=== PATIENT | male | born 1945 | race African-American/Black ===

== ENCOUNTER 2017-08-01 09:50 | Inpatient (IN) | payer MEDICARE, OTHER ==
[~2017-08-01] VITALS: Ht 198.1 cm; Wt 78.9 kg
[2017-08-01] MEDS ORDERED: Sodium Chloride 500ML 500 ML IV ONE ×2 (10:18→13:30)
[2017-08-01 10:42] VITALS: BP 196/126
--- NOTE | 2017-08-01 10:43 | Emergency Room Report ---
History of Present Illness General Chief Complaint: Syncope Source: Patient Present Illness HPI Patient presents with complaints of syncopal episode Patient reports that he was at work Was at his station when he had a hot flash sensation The next thing he recalls is being on the ground Denies any headache denies any chest pain or palpitations After the episode he has some cramping in his legs denies any pleurisy denies any focal weakness This has never happened to him before patient is otherwise fairly healthy and takes vitamins only Allergies: Coded Allergies: No Known Allergies (Unverified , 08/01/17) Patient History Past Medical History: see triage record Pertinent Family History: none Reviewed Nursing Documentation: PMH: Agreed; PSxH: Agreed Nursing Documentation-PMH Past Medical History: No Stated History Review of Systems All Other Systems: negative except mentioned in HPI Physical Exam Vital Signs Date Time Temp Pulse Resp B/P (MAP) Pulse Ox O2 Delivery O2 Flow Rate FiO2 08/01/17 09:44 98.0 75 19 169/119 100 Room Air 98.1 Sp02 EP Interpretation: reviewed, normal General Appearance: well appearing, no apparent distress Head: normocephalic, atraumatic Eyes: bilateral eye PERRL, bilateral eye EOMI ENT: hearing grossly normal, normal pharynx, TMs + canals normal, uvula midline Neck: full range of motion, supple, no meningismus, no bony tend Respiratory: lungs clear, normal breath sounds, no rhonchi, no respiratory distress, no retraction, no accessory muscle use Cardiovascular #1: normal peripheral pulses, regular rate, rhythm, no edema, no gallop, no JVD, no murmur Gastrointestinal: normal bowel sounds, non tender, soft, no mass, no organomegaly, non-distended, no guarding, no hernia, no pulsatile mass, no rebound Genitourinary: no CVA tenderness Musculoskeletal: normal inspection Neurologic: oriented x3, responsive, launch [employer] III-XII nml as tested, motor strength/ tone normal, sensory intact Psychiatric: mood/affect normal Skin: normal color, no rash, warm/dry, palpation normal Lymphatic: normal inspection, no adenopathy Procedures Critical Care Time Critical Care Time 40 minutes for multiple re-evaluations critical findings concerning for end organ injury and cardiac not including any procedural time, Medical Decision Making Diagnostic Impression: Primary Impression: Syncope Additional Impressions: Elevated troponin Anemia ER Course Patient is a fairly complex patient with multiple differential to consideration including but not limited to cardiac cardiopulmonary and vascular emergencies Patient's initial workup reveals anemia Patient's kidney function is also elevated with findings of elevated troponin EKG is performed does not show any obvious ST elevation patient remains pain- free Requires further inpatient care and evaluation Labs Test 08/01/17 10:40 White Blood Count 13.4 K/UL (4.8-10.8) Red Blood Count 2.81 M/UL (4.70-6.10) Hemoglobin 8.1 G/DL (14.2-18.0) Hematocrit 25.0 % (42.0-52.0) Mean Corpuscular Volume 89 FL (80-99) Mean Corpuscular Hemoglobin 28.9 PG (27.0-31.0) Mean Corpuscular Hemoglobin Concent 32.4 G/DL (32.0-36.0) Red Cell Distribution Width 21.3 % (11.6-14.8) Platelet Count 196 K/UL (150-450) Mean Platelet Volume 7.6 FL (6.5-10.1) Neutrophils (%) (Auto) 65.5 % (45.0-75.0) Lymphocytes (%) (Auto) 20.2 % (20.0-45.0) Monocytes (%) (Auto) 12.3 % (1.0-10.0) Eosinophils (%) (Auto) 0.7 % (0.0-3.0) Basophils (%) (Auto) 1.4 % (0.0-2.0) Sodium Level 129 MMOL/L (136-145) Potassium Level 3.4 MMOL/L (3.5-5.1) Chloride Level 95 MMOL/L (98-107) Carbon Dioxide Level 29 MMOL/L (21-32) Anion Gap 5 mmol/L (5-15) Blood Urea Nitrogen 36 mg/dL (7-18) Creatinine 2.3 MG/DL (0.55-1.30) Estimat Glomerular Filtration Rate mL/min (>60) Glucose Level 168 MG/DL (74-106) Calcium Level 8.3 MG/DL (8.5-10.1) Total Bilirubin 0.3 MG/DL (0.2-1.0) Aspartate Amino Transf (AST/SGOT) 97 U/L (15-37) Alanine Aminotransferase (ALT/SGPT) 73 U/L (12-78) Alkaline Phosphatase 182 U/L (46-116) Total Creatine Kinase 585 U/L (26-308) Creatine Kinase MB 3.7 NG/ML (0.0-3.6) Creatine Kinase MB Relative Index 0.6 Troponin I 0.205 ng/mL (0.000-0.056) Total Protein 14.6 G/DL (6.4-8.2) Albumin 2.6 G/DL (3.4-5.0) Globulin 12.0 g/dL EKG Diagnostic Results Rate: normal Rhythm: NSR ST Segments: other - Nonspecific ST and T-wave changes Rhythm Strip Diag. Results EP Interpretation: yes Rate: 88 Rhythm: NSR, no PVC's, no ectopy Chest X-Ray Diagnostic Results Chest X-Ray Diagnostic Results : Chest X-Ray Ordered: Yes # of Views/Limited/Complete: 1 View Indication: Chest Pain EP Interpretation: Yes Interpretation: no consolidation, no effusion, no pneumothorax, no acute cardiopulmonary disease Impression: No acute disease Electronically Signed by: Cynthia Gleason DO Last Vital Signs Date Time Temp Pulse Resp B/P (MAP) Pulse Ox O2 Delivery O2 Flow Rate FiO2 08/01/17 09:44 98.0 75 19 169/119 100 Room Air 98.1 Status: improved Disposition: ADMITTED INPATIENT Condition: Serious Scripts No Active Prescriptions or Reported Meds Cynthia Gleason DO Aug 01, 2017 10:43
[2017-08-01 11:10] LABS: ANION GAP 5 mmol/L (5-15); BLOOD UREA NITROGEN 36 mg/dL (7-18); CALCIUM 8.3 MG/DL (8.5-10.1); CARBON DIOXIDE 29 MMOL/L (21-32); CHLORIDE 95 MMOL/L (98-107); CREATININE 2.3 MG/DL (0.55-1.30); POTASSIUM 3.4 MMOL/L (3.5-5.1); SODIUM 129 MMOL/L (136-145)
[2017-08-01 11:15] LABS: BASOPHILS % (AUTO) 1.4 % (0.0-2.0); EOSINOPHILS % (AUTO) 0.7 % (0.0-3.0); HEMOGLOBIN 8.1 G/DL (14.2-18.0); LYMPHOCYTES % (AUTO) 20.2 % (20.0-45.0); MEAN CORPUSCULAR VOLUME 89 FL (80-99); MONOCYTES % (AUTO) 12.3 % (1.0-10.0); NEUTROPHILS % (AUTO) 65.5 % (45.0-75.0); PLATELET COUNT 196 K/UL (150-450); RED BLOOD COUNT 2.81 M/UL (4.70-6.10); RED CELL DISTRIBUTION WIDTH 21.3 % (11.6-14.8); WHITE BLOOD COUNT 13.4 K/UL (4.8-10.8)
[2017-08-01 11:26] LABS: ALANINE AMINOTRANSFERASE 73 U/L (12-78); ALBUMIN 2.6 G/DL (3.4-5.0); ALKALINE PHOSPHATASE 182 U/L (46-116); ASPARTATE AMINO TRANSFERASE 97 U/L (15-37); BILIRUBIN,TOTAL 0.3 MG/DL (0.2-1.0); CKMB 3.7 NG/ML (0.0-3.6); CREATINE KINASE 585 U/L (26-308)
[2017-08-01 12:25] VITALS: BP 197/117
[2017-08-01] MEDS ORDERED: Nitroglycerin 2% oint pkt TOPIC ONE (12:30)
--- NOTE | 2017-08-01 14:04 | Diagnostic Imaging Report ---
Indication: Chest pain Technique: One view of the chest Comparison: none Findings: Lungs and pleural spaces are clear. Heart size is normal. There is tortuous. There are degenerative changes of the right shoulder Impression: No acute process
[2017-08-01 14:31] VITALS: BP 219/124
[2017-08-01] MEDS: NS w/KCl 20mEq 1,000 ML IV SCH ×2 (15:02→23:03)
[2017-08-01 15:17] VITALS: BP 171/91
[2017-08-01 15:53] VITALS: BP 161/100
--- NOTE | 2017-08-01 16:01 | History & Physical ---
History and Physical History & Physicial dict syncope HTN anemia, rectal bleeding azotemia low albumin smoker GI eval echo, CDS monitor Renato Orona MD Aug 01, 2017 16:01
[2017-08-01 18:33] LABS: APPEARANCE,URINE SLIGHTLY CLOUDY; BILIRUBIN, URINE NEGATIVE (NEGATIVE); COLOR,URINE PALE YELLOW; GLUCOSE, URINE (UA) NEGATIVE (NEGATIVE); KETONES,URINE NEGATIVE (NEGATIVE); LEUKOCYTE ESTERASE ,URINE NEGATIVE (NEGATIVE); NITRITE,URINE NEGATIVE (NEGATIVE); PH,URINE 5 (4.5-8.0); PROTEIN,URINE 3+ (NEGATIVE); UROBILINOGEN,URINE NORMAL MG/DL (0.0-1.0)
[2017-08-01 20:00] VITALS: BP 160/99
[2017-08-01] MEDS: Analgesic Balm 15gm TOPIC SCH (20:00)
--- NOTE | 2017-08-01 20:03 | General Progress Note ---
Assessment/Plan Assessment/Plan GI Consult Dictated. EGD tomorrow afternoon. Thank you Zaynab Melara MD Subjective Allergies: Coded Allergies: No Known Allergies (Unverified , 08/01/17) Objective Last 24 Hour Vital Signs Date Time Temp Pulse Resp B/P (MAP) Pulse Ox O2 Delivery O2 Flow Rate FiO2 08/01/17 17:30 92 161/100 08/01/17 17:10 98 08/01/17 17:05 94 08/01/17 17:00 87 08/01/17 16:00 91 08/01/17 15:53 97.3 92 18 161/100 98 Room Air 97.3 08/01/17 15:39 98.1 82 18 171/91 98 Room Air 98.1 08/01/17 15:17 82 18 171/91 98 08/01/17 15:02 219/124 08/01/17 14:31 78 14 219/124 100 Room Air 08/01/17 13:46 196/126 08/01/17 12:25 98.1 77 10 197/117 100 Room Air 98.1 08/01/17 10:42 98.1 72 13 196/126 97 Room Air 98.1 08/01/17 09:44 98.0 75 19 169/119 100 Room Air 98.1 Laboratory Tests 08/01/17 10:40: White Blood Count 13.4H, Red Blood Count 2.81L, Hemoglobin 8.1L, Hematocrit 25.0L, Mean Corpuscular Volume 89, Mean Corpuscular Hemoglobin 28.9, Mean Corpuscular Hemoglobin Concent 32.4, Red Cell Distribution Width 21.3H, Platelet Count 196, Mean Platelet Volume 7.6, Neutrophils (%) (Auto) 65.5, Lymphocytes (%) (Auto) 20.2, Monocytes (%) (Auto) 12.3H, Eosinophils (%) (Auto) 0.7, Basophils (%) (Auto) 1.4, Sodium Level 129L, Potassium Level 3.4L, Chloride Level 95L, Carbon Dioxide Level 29, Anion Gap 5, Blood Urea Nitrogen 36H, Creatinine 2.3H, Estimat Glomerular Filtration Rate , Glucose Level 168H, Calcium Level 8.3L, Total Bilirubin 0.3, Aspartate Amino Transf (AST/SGOT) 97H, Alanine Aminotransferase (ALT/SGPT) 73, Alkaline Phosphatase 182H, Total Creatine Kinase 585H, Creatine Kinase MB 3.7H, Creatine Kinase MB Relative Index 0.6, Troponin I 0.205H, Total Protein 14.6H, Albumin 2.6L, Globulin 12.0 08/01/17 18:20: Urine Color Pale yellow, Urine Appearance Slightly cloudy, Urine pH 5, Urine Specific Shannon 1.015, Urine Protein 3+H, Urine Glucose (UA) Negative, Urine Ketones Negative, Urine Occult Blood 5+H, Urine Nitrite Negative, Urine Bilirubin Negative, Urine Urobilinogen Normal, Urine Leukocyte Esterase Negative , Urine RBC 20-30H, Urine WBC 0-2, Urine Squamous Epithelial Cells None, Urine Amorphous Sediment ModerateH, Urine Bacteria Occasional, Urine Random Sodium 52 , Urine Creatinine 102.7, Urine Total Protein [Pending], Urine Albumin (%) [ Pending], Urine Mywjz-8-Duzaqwjlc (%) [Pending], Urine Fveaw-9-Jvbdyovme (%) [ Pending], Urine Beta-Globulin (%) [Pending], Urine Gamma Globulin (%) [Pending] , Ur Protein Electrophoresis M-David [Pending], Urine Protein Electrophoresis Intrp [Pending] 08/01/17 18:30: Stool Occult Blood [Pending] Height (Feet): 6 Height (Inches): 2.00 Weight (Pounds): 174 TAYLORALEXXANNAMINISTERIOLOVE Aug 01, 2017 20:03
[2017-08-01] MEDS: Pantoprazole Inj IVP SCH (20:46)
[2017-08-01] MEDS: Metoprolol 25mg tab ORAL SCH (20:47)
--- NOTE | 2017-08-01 22:46 | History and Physical Report ---
DATE OF ADMISSION: 08/01/2017 CHIEF COMPLAINT: Syncope. 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 He suddenly felt hot sensation in his face and lost consciousness, finding himself on the ground. He injured his right elbow. Paramedics brought him here. He was evaluated in the emergency department and found to have marked hypertension up to 219/124 as well as anemia. Admission was arranged. PAST MEDICAL HISTORY: The patient reports that he was exposed to [place] in [place] and visits [place] on regular basis. He reports that he has no other major health problems and has been evaluated in the past. 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 There is no history of diabetes, hypertension, or heart disease. 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 SOCIAL HISTORY: He does not drink excessively. He smokes a few cigarettes, 1 or 2 cigarettes per day. ALLERGIES: None. REVIEW OF SYSTEMS: CONSTITUTIONAL: He has no headaches or seizures. He has no prior loss of consciousness. He has no history of stroke. EYES: No visual difficulty. EARS, NOSE, THROAT: No complaints. CHEST: No chest pain or shortness of breath. No palpitations, cough, or wheezing. ABDOMEN: No nausea, vomiting, or diarrhea. He does have bleeding, dark blood from the rectum on the toilet paper and in the toilet for the past 1 or 2 months. URINARY: He gets up 3 times at night to urinate. MUSCULOSKELETAL: He complains of some pain in his legs. PHYSICAL EXAMINATION: VITAL SIGNS: The blood pressure most recently is 161/100, temperature is normal, respirations normal, saturation 98% on room air, pulse is 92. He did receive some hydralazine earlier when his blood pressure was 219/124. GENERAL: A thin, well-developed man in no distress. He states that his weight is stable. HEAD: Normocephalic. EYES: No scleral icterus. NECK: No jugular vein distention. No lymphadenopathy. CHEST: Clear. CARDIAC: Rhythm regular. No murmur or gallop. ABDOMEN: Soft and nontender. Liver and spleen not enlarged. EXTREMITIES: No clubbing, cyanosis, or edema. IMAGING: Chest x-ray is negative. An echocardiogram shows pulmonary hypertension and diastolic dysfunction. LABORATORY TESTS: Show white count is 13,800. There was no urine. Hemoglobin is 8.1, platelets are normal, MCV is 89. The sodium is 129, potassium 3.4, BUN 36, creatinine 2.3, blood sugar 168. Liver enzymes are elevated including alkaline phosphatase at 182 and AST of 93. CPK is elevated at 585. Troponin elevated at 0.205. Total protein is 14.6, albumin 2.6. IMPRESSIONS: 1. Anemia due to GI bleeding. 2. Hyperproteinemia, possible myeloma. 3. Hyponatremia and hypokalemia. 4. Azotemia. 5. Elevated liver enzymes. 6. Hypertension with diastolic dysfunction. 7. Pulmonary hypertension. PLAN: The patient will have protein electrophoresis. Nephrology consultation has been requested and fluid resuscitation will be given. GI evaluation will be undertaken. We will get an echocardiogram and once we have obtained an echocardiogram, we will obtain carotid duplex scan. Renato Orona M.D. DR: Ifrah JOB#: [id number] CC: Clyde Livingston M.D.; Fax#: [phone] TAYLA OLMEDO M.D. ; FAX#: [phone] Poli Schroeder M.D.
[2017-08-02] VITALS (8 sets, daily range): BP systolic 155–198; BP diastolic 73–122
--- NOTE | 2017-08-02 00:16 | Consultation ---
DATE OF CONSULTATION: 08/01/2017 CARDIOLOGY CONSULTATION REQUESTING PHYSICIAN: Renato Orona M.D. REASON FOR CONSULTATION: Atrial fibrillation, elevated troponin level, and syncopal episode. HISTORY OF PRESENT ILLNESS: This is a pleasant 71-year-old male. He has not had any recent medical care due to good health. He notes that over the past month or so he has had a few episodes of blood in his stool. He has not had any associated symptoms. 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 Witness stated that he lost consciousness. There was no evidence of seizure activity. He notes some leg cramping and aching prior to the episode, but otherwise no distress. PAST MEDICAL HISTORY: None. MEDICATIONS: Prior to admission, none. ALLERGIES: None. SOCIAL HISTORY: Positive smoker. Social alcohol. REVIEW OF SYSTEMS: No fevers or chills. No history of tuberculosis exposure or asthma. No history of seizures. No history of diabetes or thyroid disorder. No history of hypertension or cardiovascular disease. No history of kidney disorder or prostate cancer. PHYSICAL EXAMINATION: VITAL SIGNS: Initial blood pressure 169/119, subsequent blood pressure 161/100, heart rate 90, respiratory rate 18, and afebrile. HEENT: Normocephalic and atraumatic. Conjunctivae pink. Oropharynx clear. NECK: Supple. Jugular venous pressure normal. No thyromegaly. LUNGS: Clear. CARDIAC: Regular rhythm and rate. Normal S1 and S2 with a fourth heart sound. ABDOMEN: Soft and nontender. No masses, guarding, or rebound. EXTREMITIES: Good pulses. No edema. NEUROLOGIC: Nonfocal. LABORATORY AND DIAGNOSTIC DATA: Sodium 129, potassium 3.4, chloride 95, bicarbonate 29, BUN 36, creatinine 2.3, and glucose 168. Troponin 0.205. AST and ALT 97/73. CK 585. Albumin 2.6. White count 13.4. MCV 89 with hemoglobin of 8.1. Urinalysis with 20 to 30 red cells. EKG revealed paroxysmal atrial fibrillation with nonspecific ST-T wave changes. Chest x-ray with no acute process. IMPRESSION: 1. Syncope, possible orthostasis. 2. Paroxysmal atrial fibrillation. 3. Acute myocardial infarction. 4. Anemia. 5. History of rectal bleeding. 6. Hypertensive urgency. 7. Moderate protein-calorie malnutrition. 8. Nicotine abuse. PLAN: 1. Transfusion for further drop in hemoglobin. 2. Anemia panel. 3. Stool occult blood testing. 4. Hold anti-platelet drugs. 5. Cardiac monitoring. 6. Serial troponins. 7. Cautious hydration. 8. Monitor orthostatics. 9. Add beta-jonatan for antianginal effect and blood pressure control. 10. Avoid tight blood pressure control at this time. 11. Echocardiogram, carotid duplex study, and possible further imaging will be obtained. Poli Schroeder M.D. DR: Renee JOB#: [id number] CC:
--- NOTE | 2017-08-02 01:31 | Consultation ---
DATE OF CONSULTATION: 08/01/2017 NEPHROLOGY CONSULTATION CONSULTING PHYSICIAN: Clyde Livingston M.D. REFERRING PHYSICIAN: Renato Orona M.D. REASON FOR CONSULTATION: Anemia and elevated BUN and creatinine. 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 There was no associated chest pain, palpitations, or shortness of breath. He was found to have severe anemia and elevated creatinine. The patient has not seen a doctor for many years. He has had some rectal bleeding on and off for the past month, small to moderate amount. No nausea, vomiting, or abdominal pain. No rectal itching or known hemorrhoids. No known history of GI problems or weight loss. He has nocturia about three times a night, but denies any hesitancy or dysuria. No prior knowledge of kidney disease, hypertension, or heart disease. PAST SURGICAL HISTORY: Bilateral thigh and groin for shrapnel in the [place]. 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 ALLERGIES: None known. MEDICATIONS: Qama-nae-iazwkfk vitamins and a pain medicine, which he thinks is Aleve, which he takes one pill a day. HABITS: The patient is a cigarette smoker most of his adult life, prior more than a pack a day, currently two cigarettes a day. No alcohol. He smokes marijuana. SYSTEM REVIEW: HEAD EYES, EARS, NOSE, AND THROAT: Vision is not good. Hearing is good. ENDOCRINE: He is not aware of any diabetes or thyroid disease. PULMONARY: No asthma, TB, or chronic cough. CARDIAC: No angina, SC, or palpitations. GASTROINTESTINAL: See history of present illness. GENITOURINARY: See history of present illness. MUSCULOSKELETAL: No history of chronic joint pain. NEUROLOGIC: No prior episodes of CVA or syncope. PHYSICAL EXAMINATION: GENERAL: The patient is alert, thin man, in no acute distress. VITAL SIGNS: He has a BMI of 22.3. Temperature 98.1, pulse 82, respirations 18, blood pressure 171/91, and pulse oximetry 98%. HEAD EYES, EARS, NOSE, AND THROAT: Sclerae are nonicteric. Ocular motions intact in all directions. Oral mucosa moist. NECK: No adenopathy or thyroid enlargement. LUNGS: Clear. HEART: Regular rhythm. I hear no murmur. ABDOMEN: Soft. No organomegaly or tenderness. EXTREMITIES: No edema, cyanosis, or clubbing. NEUROLOGIC: He is alert and oriented. Cranial nerves are intact. PERTINENT LABORATORY DATA: White count 13.4, hemoglobin 8.1. Sodium 129, potassium 3.4, chloride 95, CO2 of 29, BUN 36, creatinine 2.3, and glucose is 168. Troponin 0.205. Albumin is 2.6. CK is 585. IMPRESSION: 1. Syncope. 2. Elevated BUN and creatinine, possibly acute kidney injury versus chronic, possible dehydration, possible chronic kidney disease to be determined. 3. Hyponatremia. 4. Hypokalemia. 5. Rectal bleeding and anemia. 6. Elevated CK and AST, likely rhabdomyolysis, etiology unclear. 7. Elevated troponin, possibly false positive from rhabdomyolysis. 8. History of cigarette smoking and likely chronic obstructive pulmonary disease. PLAN: The patient will get vigorous hydration following CBCs and chemistries. Monitor his renal function. Check urine electrolytes. Check the renal ultrasound. Avoid overtreatment of blood pressure, which may cause further syncope. Clyde Livingston M.D. : ROSS JOB#: [id number] CC:
[2017-08-02] MEDS: NS w/KCl 20mEq 1,000 ML IV SCH ×2 (07:02→16:05)
--- NOTE | 2017-08-02 08:16 | Consultation ---
DATE OF CONSULTATION: 08/01/2017 GASTROENTEROLOGY CONSULTATION CONSULTING PHYSICIAN: Zahra Melara M.D. REFERRING PHYSICIAN: Renato Orona M.D. CHIEF COMPLAINT: I was asked to see this patient by Dr. Renato Orona for evaluation of gastrointestinal bleeding. HISTORY OF PRESENT ILLNESS: The patient is a pleasant 71-year-old man without any significant past medical history who has been noted to have dark stools over the past week and when he passed out to the floor he came to the emergency room where he was found to be profoundly anemic and also azotemic. The patient takes an aspirin every day, but otherwise, he is on no medications. He has had no history of peptic ulcer disease or gastrointestinal bleeding. He recalls having had a colonoscopy perhaps in the 70s, but that was a long time ago. He normally does not see any doctors or has any significant medical issues. He denies any nausea or vomiting. PAST MEDICAL HISTORY: Otherwise negative. FAMILY HISTORY: Noncontributory. SOCIAL HISTORY: The patient is single. He smokes two cigarettes a day. He does not drink alcohol. 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 He has no children. REVIEW OF SYSTEMS: Otherwise negative. PHYSICAL EXAMINATION: GENERAL: A pleasant man, seen in his room. HEENT: Normocephalic and atraumatic. Sclerae anicteric. Oropharynx clear. NECK: Supple. CHEST: Clear to auscultation. CARDIOVASCULAR: Regular rate. ABDOMEN: Soft with good bowel sounds. There is no organomegaly. EXTREMITIES: No edema. LABORATORY DATA: Noted. ASSESSMENT: This patient presents with syncope, which is very likely due to acute volume depletion from gastrointestinal bleeding. Given the dark color of the stool, it is likely that the source is upper. Peptic ulcer disease will be high on the differential. The patient should undergo an endoscopy once his volume is repleted to evaluate and treat the source. Thereafter, the colonoscopy to be done as an outpatient at a later date to evaluate the upper gastrointestinal tract. For the time being, I will keep the patient NPO overnight after midnight and give him a PPI . Blood transfusion may be needed if his blood count drops any further with intravenous hydration. Should his endoscopy be negative, then he may have to have inpatient colonoscopy to complete the workup. RECOMMENDATIONS: Per above discussion and per orders written in the chart. Thank you for asking me to participate in the care of this patient. Zahra Melara M.D. DR: SIL JOB#: [id number] CC: DEEP
[2017-08-02] MEDS: Pantoprazole Inj IVP SCH ×2 (08:29→21:11)
[2017-08-02] MEDS: Metoprolol 25mg tab ORAL SCH ×2 (08:30→21:11)
[2017-08-02] MEDS ORDERED: Aspirin EC 81mg tab ORAL SCH ×2 (09:00)
[2017-08-02] MEDS ORDERED: Heparin 5000 units/ml inj SUBQ SCH (09:00)
[2017-08-02] MEDS: Analgesic Balm 15gm TOPIC SCH ×2 (09:00→17:42)
[2017-08-02 09:47] LABS: MEAN CORPUSCULAR VOLUME 88 FL (80-99); PLATELET COUNT 186 K/UL (150-450); RED BLOOD COUNT 2.39 M/UL (4.70-6.10); RED CELL DISTRIBUTION WIDTH 20.9 % (11.6-14.8); WHITE BLOOD COUNT 14.1 K/UL (4.8-10.8)
[2017-08-02 10:07] LABS: HEMOGLOBIN 6.9 G/DL (14.2-18.0)
[2017-08-02 10:09] LABS: ANION GAP 3 mmol/L (5-15); BLOOD UREA NITROGEN 28 mg/dL (7-18); CALCIUM 7.9 MG/DL (8.5-10.1); CARBON DIOXIDE 30 MMOL/L (21-32); CHLORIDE 97 MMOL/L (98-107); POTASSIUM 3.3 MMOL/L (3.5-5.1); SODIUM 130 MMOL/L (136-145)
[2017-08-02 10:42] LABS: ALANINE AMINOTRANSFERASE 75 U/L (12-78); ALBUMIN 2.3 G/DL (3.4-5.0); ALKALINE PHOSPHATASE 194 U/L (46-116); ASPARTATE AMINO TRANSFERASE 91 U/L (15-37); BILIRUBIN,TOTAL 0.4 MG/DL (0.2-1.0); CHOLESTEROL 133 MG/DL (< 200); HDL CHOLESTEROL 42 MG/DL (40-60); TRIGLYCERIDES 62 MG/DL (30-150)
[2017-08-02 10:54] LABS: % IRON SATURATION 47 % (15-50); IRON 114 ug/dL (50-175); TOTAL IRON BINDING CAPACITY 242 ug/dL (250-450)
[2017-08-02] MEDS ORDERED: Acetaminophen 650 MG SUPP RECTAL ONE (12:45)
--- NOTE | 2017-08-02 14:36 | General Progress Note ---
Assessment/Plan Assessment/Plan 1. Anemia due to GI bleeding. 2. Hyperproteinemia, possible myeloma. 3. Hyponatremia and hypokalemia. 4. Azotemia. 5. Elevated liver enzymes. 6. Hypertension with diastolic dysfunction. 7. Pulmonary hypertension. adjust BP meds per renal await SPEP transfuse, Hgb <7 EGD per GI cardiology eval for ischemia Subjective Constitutional: Denies: chills, fever, malaise, weakness Cardiovascular: Denies: chest pain Respiratory: Denies: shortness of breath Allergies: Coded Allergies: No Known Allergies (Unverified , 08/01/17) Objective Last 24 Hour Vital Signs Date Time Temp Pulse Resp B/P (MAP) Pulse Ox O2 Delivery O2 Flow Rate FiO2 08/02/17 14:15 98.1 69 19 198/122 100 Room Air 98.1 08/02/17 13:55 80 192/105 08/02/17 08:30 83 178/73 08/02/17 08:29 83 178/73 08/02/17 08:00 97.5 83 19 178/73 99 Room Air 97.5 08/02/17 04:00 97.7 77 20 155/98 96 Room Air 97.7 08/02/17 04:00 68 08/02/17 01:00 77 86 98 08/02/17 00:00 96.9 100 22 158/98 96 Room Air 96.9 08/02/17 00:00 73 08/01/17 20:47 107 160/99 08/01/17 20:00 97.7 107 20 160/99 98 Room Air 97.7 08/01/17 20:00 84 08/01/17 17:30 92 161/100 08/01/17 17:10 98 08/01/17 17:05 94 08/01/17 17:00 87 08/01/17 16:00 91 08/01/17 15:53 97.3 92 18 161/100 98 Room Air 97.3 08/01/17 15:39 98.1 82 18 171/91 98 Room Air 98.1 08/01/17 15:17 82 18 171/91 98 08/01/17 15:02 219/124 Intake and Output 08/01/17 08/02/17 19:00 07:00 Intake Total 1120 ml 1250 ml Balance 1120 ml 1250 ml Intake Oral 120 ml IV Total 500 ml 1250 ml Other 500 ml # Bowel Movements 1 1 Laboratory Tests 08/01/17 18:20: Urine Color Pale yellow, Urine Appearance Slightly cloudy, Urine pH 5, Urine Specific [place] 1.015, Urine Protein 3+H, Urine Glucose (UA) Negative, Urine Ketones Negative, Urine Occult Blood 5+H, Urine Nitrite Negative, Urine Bilirubin Negative, Urine Urobilinogen Normal, Urine Leukocyte Esterase Negative , Urine RBC 20-30H, Urine WBC 0-2, Urine Squamous Epithelial Cells None, Urine Amorphous Sediment ModerateH, Urine Bacteria Occasional, Urine Random Sodium 52 , Urine Creatinine 102.7, Urine Total Protein 146.7, Urine Albumin (%) 26.0, Urine Zvfve-1-Etwsrqmzu (%) 0.7, Urine Xjqzy-9-Fhiagszve (%) 3.4, Urine Beta- Globulin (%) 7.4, Urine Gamma Globulin (%) 62.6, Ur Protein Electrophoresis M- David 51.2H, Urine Protein Electrophoresis Intrp Comment 08/01/17 18:30: Stool Occult Blood [Pending] 08/02/17 07:41: White Blood Count 14.1H, Red Blood Count 2.39L, Hemoglobin 6.9*L, Hematocrit 21.0L, Mean Corpuscular Volume 88, Mean Corpuscular Hemoglobin 28.8, Mean Corpuscular Hemoglobin Concent 32.8, Red Cell Distribution Width 20.9H, Platelet Count 186, Mean Platelet Volume 8.2, Neutrophils (%) (Auto) , Lymphocytes (%) (Auto) , Monocytes (%) (Auto) , Eosinophils (%) (Auto) , Basophils (%) (Auto) , Differential Total Cells Counted 100, Neutrophils % ( Manual) 62, Lymphocytes % (Manual) 20, Monocytes % (Manual) 18H, Eosinophils % ( Manual) 0, Basophils % (Manual) 0, Band Neutrophils 0, Nucleated Red Blood Cells 12, Platelet Estimate Adequate, Platelet Morphology Normal, Hypochromasia 1+, Anisocytosis 1+, Macrocytosis 1+, Sodium Level 130L, Potassium Level 3.3L, Chloride Level 97L, Carbon Dioxide Level 30, Anion Gap 3L, Blood Urea Nitrogen 28H, Creatinine 2.0H, Estimat Glomerular Filtration Rate , Glucose Level 112H, Calcium Level 7.9L, Iron Level 114, Total Iron Binding Capacity 242L, Percent Iron Saturation 47, Unsaturated Iron Binding 128, Total Bilirubin 0.4, Aspartate Amino Transf (AST/SGOT) 91H, Alanine Aminotransferase (ALT/SGPT) 75, Alkaline Phosphatase 194H, Troponin I 0.217H, Total Protein 14.3H, Albumin 2.3L , Globulin 12.0, Triglycerides Level 62, Cholesterol Level 133, LDL Cholesterol 84, HDL Cholesterol 42, Cholesterol/HDL Ratio 3.2L, Thyroid Stimulating Hormone (TSH) 2.782 Height (Feet): 6 Height (Inches): 6.00 Weight (Pounds): 174 General Appearance: no apparent distress, cachetic Neck: normal alignment Cardiovascular: normal rate Respiratory/Chest: lungs clear Abdomen: non tender, no organomegaly Renato Orona MD Aug 02, 2017 14:36
--- NOTE | 2017-08-02 14:45 | Nephrology Progress Note ---
Assessment/Plan Problem List: (1) Low back pain (2) Hypergammaglobulinemia (3) CKD (chronic kidney disease) stage 3, GFR 30-59 ml/min (4) Syncope (5) Elevated troponin (6) Anemia (7) Proteinuria Plan myeloma studies, titrate bp meds,hydrate Subjective Constitutional: Reports: weakness HEENT: Reports: no symptoms Genitourinary: Reports: no symptoms Neurologic/Psychiatric: Reports: no symptoms Objective Objective Last 24 Hour Vital Signs Date Time Temp Pulse Resp B/P (MAP) Pulse Ox O2 Delivery O2 Flow Rate FiO2 08/02/17 14:15 98.1 69 19 198/122 100 Room Air 98.1 08/02/17 13:55 80 192/105 08/02/17 08:30 83 178/73 08/02/17 08:29 83 178/73 08/02/17 08:00 97.5 83 19 178/73 99 Room Air 97.5 08/02/17 04:00 97.7 77 20 155/98 96 Room Air 97.7 08/02/17 04:00 68 08/02/17 01:00 77 86 98 08/02/17 00:00 96.9 100 22 158/98 96 Room Air 96.9 08/02/17 00:00 73 08/01/17 20:47 107 160/99 08/01/17 20:00 97.7 107 20 160/99 98 Room Air 97.7 08/01/17 20:00 84 08/01/17 17:30 92 161/100 08/01/17 17:10 98 08/01/17 17:05 94 08/01/17 17:00 87 08/01/17 16:00 91 08/01/17 15:53 97.3 92 18 161/100 98 Room Air 97.3 08/01/17 15:39 98.1 82 18 171/91 98 Room Air 98.1 08/01/17 15:17 82 18 171/91 98 08/01/17 15:02 219/124 Intake and Output 08/01/17 08/02/17 19:00 07:00 Intake Total 1120 ml 1250 ml Balance 1120 ml 1250 ml Intake Oral 120 ml IV Total 500 ml 1250 ml Other 500 ml # Bowel Movements 1 1 Laboratory Tests 08/01/17 18:20: Urine Color Pale yellow, Urine Appearance Slightly cloudy, Urine pH 5, Urine Specific [place] 1.015, Urine Protein 3+H, Urine Glucose (UA) Negative, Urine Ketones Negative, Urine Occult Blood 5+H, Urine Nitrite Negative, Urine Bilirubin Negative, Urine Urobilinogen Normal, Urine Leukocyte Esterase Negative , Urine RBC 20-30H, Urine WBC 0-2, Urine Squamous Epithelial Cells None, Urine Amorphous Sediment ModerateH, Urine Bacteria Occasional, Urine Random Sodium 52 , Urine Creatinine 102.7, Urine Total Protein 146.7, Urine Albumin (%) 26.0, Urine Nwumb-9-Pxeombyrs (%) 0.7, Urine Tzcxn-7-Mwvvfdpjj (%) 3.4, Urine Beta- Globulin (%) 7.4, Urine Gamma Globulin (%) 62.6, Ur Protein Electrophoresis M- David 51.2H, Urine Protein Electrophoresis Intrp Comment 08/01/17 18:30: Stool Occult Blood [Pending] 08/02/17 07:41: White Blood Count 14.1H, Red Blood Count 2.39L, Hemoglobin 6.9*L, Hematocrit 21.0L, Mean Corpuscular Volume 88, Mean Corpuscular Hemoglobin 28.8, Mean Corpuscular Hemoglobin Concent 32.8, Red Cell Distribution Width 20.9H, Platelet Count 186, Mean Platelet Volume 8.2, Neutrophils (%) (Auto) , Lymphocytes (%) (Auto) , Monocytes (%) (Auto) , Eosinophils (%) (Auto) , Basophils (%) (Auto) , Differential Total Cells Counted 100, Neutrophils % ( Manual) 62, Lymphocytes % (Manual) 20, Monocytes % (Manual) 18H, Eosinophils % ( Manual) 0, Basophils % (Manual) 0, Band Neutrophils 0, Nucleated Red Blood Cells 12, Platelet Estimate Adequate, Platelet Morphology Normal, Hypochromasia 1+, Anisocytosis 1+, Macrocytosis 1+, Sodium Level 130L, Potassium Level 3.3L, Chloride Level 97L, Carbon Dioxide Level 30, Anion Gap 3L, Blood Urea Nitrogen 28H, Creatinine 2.0H, Estimat Glomerular Filtration Rate , Glucose Level 112H, Calcium Level 7.9L, Iron Level 114, Total Iron Binding Capacity 242L, Percent Iron Saturation 47, Unsaturated Iron Binding 128, Total Bilirubin 0.4, Aspartate Amino Transf (AST/SGOT) 91H, Alanine Aminotransferase (ALT/SGPT) 75, Alkaline Phosphatase 194H, Troponin I 0.217H, Total Protein 14.3H, Albumin 2.3L , Globulin 12.0, Triglycerides Level 62, Cholesterol Level 133, LDL Cholesterol 84, HDL Cholesterol 42, Cholesterol/HDL Ratio 3.2L, Thyroid Stimulating Hormone (TSH) 2.782 Height (Feet): 6 Height (Inches): 6.00 Weight (Pounds): 174 General Appearance: no apparent distress, alert, thin EENT: normal ENT inspection Neck: non-tender Cardiovascular: normal rate Respiratory/Chest: lungs clear Abdomen: non tender, soft Extremities: other - no edema 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
--- NOTE | 2017-08-02 22:26 | General Progress Note ---
Assessment/Plan Assessment/Plan Assessment - GI Bleed - syncope - Azotemia - mildly elevated troponin Recommendation - po as tolerated - monitor CBC - transfuse PRN - PPI - cardiac clearance - EGD pending Subjective Allergies: Coded Allergies: No Known Allergies (Unverified , 08/01/17) Subjective Above noted mild troponin elevation noted discussed with cardiology EGD postponed until more stable Objective Last 24 Hour Vital Signs Date Time Temp Pulse Resp B/P (MAP) Pulse Ox O2 Delivery O2 Flow Rate FiO2 08/02/17 21:11 79 182/113 08/02/17 20:00 98.2 79 20 182/113 98 98.2 08/02/17 17:41 78 180/110 08/02/17 17:10 78 08/02/17 17:05 80 08/02/17 17:00 75 08/02/17 16:50 98.0 74 20 179/113 97 Room Air 98.0 08/02/17 16:00 97.2 80 20 180/115 97 Room Air 97.2 08/02/17 16:00 76 08/02/17 14:15 98.1 69 19 198/122 100 Room Air 98.1 08/02/17 13:55 80 192/105 08/02/17 12:00 75 08/02/17 12:00 97.5 83 19 178/113 99 Room Air 97.5 08/02/17 09:00 70 78 80 08/02/17 08:30 83 178/73 08/02/17 08:29 83 178/73 08/02/17 08:00 97.5 83 19 178/73 99 Room Air 97.5 08/02/17 08:00 74 08/02/17 04:00 97.7 77 20 155/98 96 Room Air 97.7 08/02/17 04:00 68 08/02/17 01:00 77 86 98 08/02/17 00:00 96.9 100 22 158/98 96 Room Air 96.9 08/02/17 00:00 73 Intake and Output 08/01/17 08/02/17 19:00 07:00 Intake Total 1120 ml 1250 ml Balance 1120 ml 1250 ml Intake Oral 120 ml IV Total 500 ml 1250 ml Other 500 ml # Bowel Movements 1 1 Laboratory Tests 08/02/17 07:41: White Blood Count 14.1H, Red Blood Count 2.39L, Hemoglobin 6.9*L, Hematocrit 21.0L, Mean Corpuscular Volume 88, Mean Corpuscular Hemoglobin 28.8, Mean Corpuscular Hemoglobin Concent 32.8, Red Cell Distribution Width 20.9H, Platelet Count 186, Mean Platelet Volume 8.2, Neutrophils (%) (Auto) , Lymphocytes (%) (Auto) , Monocytes (%) (Auto) , Eosinophils (%) (Auto) , Basophils (%) (Auto) , Differential Total Cells Counted 100, Neutrophils % ( Manual) 62, Lymphocytes % (Manual) 20, Monocytes % (Manual) 18H, Eosinophils % ( Manual) 0, Basophils % (Manual) 0, Band Neutrophils 0, Nucleated Red Blood Cells 12, Platelet Estimate Adequate, Platelet Morphology Normal, Hypochromasia 1+, Anisocytosis 1+, Macrocytosis 1+, Sodium Level 130L, Potassium Level 3.3L, Chloride Level 97L, Carbon Dioxide Level 30, Anion Gap 3L, Blood Urea Nitrogen 28H, Creatinine 2.0H, Estimat Glomerular Filtration Rate , Glucose Level 112H, Calcium Level 7.9L, Iron Level 114, Total Iron Binding Capacity 242L, Percent Iron Saturation 47, Unsaturated Iron Binding 128, Total Bilirubin 0.4, Aspartate Amino Transf (AST/SGOT) 91H, Alanine Aminotransferase (ALT/SGPT) 75, Alkaline Phosphatase 194H, Troponin I 0.217H, Total Protein 14.3H, Albumin 2.3L , Globulin 12.0, Triglycerides Level 62, Cholesterol Level 133, LDL Cholesterol 84, HDL Cholesterol 42, Cholesterol/HDL Ratio 3.2L, Thyroid Stimulating Hormone (TSH) 2.782 08/02/17 20:00: Urine Total Volume 24 Hours [Pending], Urine Creatinine 24 Hour [Pending], Urine Total Protein Timed [Pending], Urine Protein/Creatinine Ratio [Pending], Urine Albumin (%) [Pending], Urine Nifmj-5-Nyvmdsbhd (%) [Pending], Urine Alpha- 2-Globulins (%) [Pending], Urine Beta-Globulin (%) [Pending], Urine Gamma Globulin (%) [Pending], Urine Protein Electrophoresis Intrp [Pending], Urine Immunofixation [Pending] Height (Feet): 6 Height (Inches): 6.00 Weight (Pounds): 174 Objective WDWN NCAT supple CTA RRR soft ND NT no edema non focal TAYLA OLMEDO Aug 02, 2017 22:26
[2017-08-03] VITALS (8 sets, daily range): BP systolic 155–192; BP diastolic 97–126
[2017-08-03] MEDS ORDERED: HydrALAZINE 25mg tab ORAL ONE (03:00)
--- NOTE | 2017-08-03 05:15 | Progress Note ---
DATE: 08/02/2017 CARDIOLOGY PROGRESS NOTE SUBJECTIVE: The patient feels better, but still has weakness. No chest pain or shortness of breath. Some abdominal discomfort. OBJECTIVE: VITAL SIGNS: Blood pressure 155/98 to 192/105, heart rate 69 to 83, respiratory rate 18 to 22, and afebrile. HEENT: Sharp disc margins. Oropharynx clear. NECK: Supple. No jugular venous distention. LUNGS: Clear. CARDIAC: Irregular rhythm and rate. Normal S1, S2 with a fourth heart sound. A 1/6 systolic murmur at apex. ABDOMEN: Soft. No focal tenderness, guarding, or rebound. EXTREMITIES: Without edema. LABORATORY DATA: White count 14, hemoglobin 6.9, and platelets 186,000. Sodium 130, potassium 3.3, bicarbonate 30, BUN 28, and creatinine 2.0. Troponin 0.217. Albumin 2.3. LDL 84, TSH 2.7. Iron saturation 47%. Urinalysis with significant protein. IMPRESSION: 1. Acute myocardial infarction. 2. Malignant hypertension/hypertensive urgency. 3. Severe anemia. 4. Possible gastrointestinal bleed. 5. Acute on chronic renal failure. 6. Possible myeloma. 7. Paroxysmal atrial fibrillation PLAN: 1. Packed red blood cell transfusion. 2. Cardiac monitoring. 3. Up titrate antihypertensive regimen. 4. Hold anti-platelet and anti-coagulant therapy until GI workup completed. 5. Defer endoscopy until stable cardiovascular parameters and hemoglobin level stabilize. 6. Antianginal regimen to include beta-jonatan. 7. Continue cardiac monitoring. 8. Remains critical and guarded. Poli Schroeder M.D. DR: FILEMON JOB#: [id number] CC: DEEP
[2017-08-03 08:05] LABS: BASOPHILS % (AUTO) 1.2 % (0.0-2.0); EOSINOPHILS % (AUTO) 0.5 % (0.0-3.0); HEMATOCRIT 25.7 % (42.0-52.0); HEMOGLOBIN 8.4 G/DL (14.2-18.0); LYMPHOCYTES % (AUTO) 27.7 % (20.0-45.0); MEAN CORPUSCULAR VOLUME 87 FL (80-99); MONOCYTES % (AUTO) 14.8 % (1.0-10.0); NEUTROPHILS % (AUTO) 55.9 % (45.0-75.0); PLATELET COUNT 189 K/UL (150-450); RED BLOOD COUNT 2.95 M/UL (4.70-6.10); RED CELL DISTRIBUTION WIDTH 20.5 % (11.6-14.8); WHITE BLOOD COUNT 15.3 K/UL (4.8-10.8)
[2017-08-03] MEDS: HydrALAZINE 50mg tab ORAL SCH ×3 (08:07→17:48)
[2017-08-03 08:20] LABS: ALANINE AMINOTRANSFERASE 73 U/L (12-78); ALBUMIN 2.3 G/DL (3.4-5.0); ALKALINE PHOSPHATASE 217 U/L (46-116); ANION GAP 3 mmol/L (5-15); ASPARTATE AMINO TRANSFERASE 93 U/L (15-37); BILIRUBIN,TOTAL 0.5 MG/DL (0.2-1.0); BLOOD UREA NITROGEN 26 mg/dL (7-18); CALCIUM 7.9 MG/DL (8.5-10.1); CARBON DIOXIDE 30 MMOL/L (21-32); CHLORIDE 96 MMOL/L (98-107); CREATININE 1.9 MG/DL (0.55-1.30); POTASSIUM 3.2 MMOL/L (3.5-5.1); SODIUM 129 MMOL/L (136-145)
[2017-08-03] MEDS: NS w/KCl 20mEq 1,000 ML IV SCH (08:23)
[2017-08-03] MEDS: Pantoprazole Inj IVP SCH ×2 (08:51→21:03)
[2017-08-03] MEDS: Metoprolol Tartrate 50mg tab ORAL SCH ×2 (08:52→21:03)
[2017-08-03] MEDS: Analgesic Balm 15gm TOPIC SCH ×2 (12:00→17:46)
--- NOTE | 2017-08-03 15:28 | Nephrology Progress Note ---
Assessment/Plan Problem List: (1) Low back pain (2) Hypergammaglobulinemia (3) CKD (chronic kidney disease) stage 3, GFR 30-59 ml/min (4) Syncope (5) Elevated troponin (6) Anemia (7) Proteinuria (8) Hypopotassemia (9) Hyponatremia Plan myeloma studies, titrate bp meds,hydrate--change to po hydration, kcl, cardiac med titration Subjective Constitutional: Reports: weakness HEENT: Reports: no symptoms Genitourinary: Reports: no symptoms Neurologic/Psychiatric: Reports: no symptoms Objective Objective Last 24 Hour Vital Signs Date Time Temp Pulse Resp B/P (MAP) Pulse Ox O2 Delivery O2 Flow Rate FiO2 08/03/17 12:00 97.8 69 20 168/107 98 Room Air 97.8 08/03/17 11:32 166/107 08/03/17 10:30 180/109 08/03/17 10:28 97.7 78 20 180/109 98 Room Air 97.7 08/03/17 09:10 100 08/03/17 09:05 99 08/03/17 09:00 98 08/03/17 08:52 72 188/116 08/03/17 08:52 72 188/116 08/03/17 08:07 188/116 08/03/17 08:00 97.7 72 20 184/108 98 Room Air 97.7 08/03/17 04:00 98.0 75 20 189/122 100 Room Air 98.0 08/03/17 04:00 68 08/03/17 03:01 189/122 08/03/17 03:00 189/115 08/03/17 00:00 78 08/03/17 00:00 98.4 74 20 192/126 99 Room Air 98.4 08/02/17 21:11 79 182/113 08/02/17 20:00 98.2 79 20 182/113 98 98.2 08/02/17 20:00 82 08/02/17 17:41 78 180/110 08/02/17 17:10 78 08/02/17 17:05 80 08/02/17 17:00 75 08/02/17 16:50 98.0 74 20 179/113 97 Room Air 98.0 08/02/17 16:00 97.2 80 20 180/115 97 Room Air 97.2 08/02/17 16:00 76 Intake and Output 08/02/17 08/03/17 19:00 07:00 Intake Total 1415 ml 75 ml Output Total 900 ml 800 ml Balance 515 ml -725 ml Intake Oral 260 ml IV Total 1155 ml 75 ml Output Urine Total 900 ml 800 ml Laboratory Tests 08/02/17 20:00: Urine Total Volume 24 Hours [Pending], Urine Creatinine 24 Hour [Pending], Urine Total Protein Timed [Pending], Urine Protein/Creatinine Ratio [Pending], Urine Albumin (%) [Pending], Urine Tlhrt-0-Wibtucrwj (%) [Pending], Urine Alpha- 2-Globulins (%) [Pending], Urine Beta-Globulin (%) [Pending], Urine Gamma Globulin (%) [Pending], Urine Protein Electrophoresis Intrp [Pending], Urine Immunofixation [Pending] 08/03/17 07:15: White Blood Count 15.3H, Red Blood Count 2.95L, Hemoglobin 8.4L, Hematocrit 25.7L, Mean Corpuscular Volume 87, Mean Corpuscular Hemoglobin 28.4, Mean Corpuscular Hemoglobin Concent 32.6, Red Cell Distribution Width 20.5H, Platelet Count 189, Mean Platelet Volume 7.3, Neutrophils (%) (Auto) 55.9, Lymphocytes (%) (Auto) 27.7, Monocytes (%) (Auto) 14.8H, Eosinophils (%) (Auto) 0.5, Basophils (%) (Auto) 1.2, Sodium Level 129L, Potassium Level 3.2L, Chloride Level 96L, Carbon Dioxide Level 30, Anion Gap 3L, Blood Urea Nitrogen 26H, Creatinine 1.9H, Estimat Glomerular Filtration Rate , Glucose Level 124H, Calcium Level 7.9L, Total Bilirubin 0.5, Aspartate Amino Transf (AST/SGOT) 93H, Alanine Aminotransferase (ALT/SGPT) 73, Alkaline Phosphatase 217H, Total Protein 14.6H, Albumin 2.3L, Globulin 12.3, Immunoglobulin G [Pending], Immunoglobulin A [Pending], Immunoglobulin M [Pending], Immunofixation Screen [ Pending], HIV (1&2) Antibody Rapid Negative Height (Feet): 6 Height (Inches): 6.00 Weight (Pounds): 174 General Appearance: no apparent distress, thin EENT: normal ENT inspection Neck: normal alignment, supple Cardiovascular: normal rate Respiratory/Chest: lungs clear Abdomen: non tender, soft 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
--- NOTE | 2017-08-03 17:59 | General Progress Note ---
Assessment/Plan Assessment/Plan Assessment - GI Bleed - syncope - Azotemia - mildly elevated troponin - abnormal LFT Recommendation - po as tolerated - monitor CBC - transfuse PRN - PPI - cardiac clearance - EGD Saturday - abd u/s after EGD - check hepatitis serologies Subjective Allergies: Coded Allergies: No Known Allergies (Unverified , 08/01/17) Subjective Above noted no further GI bleeding tolerating PO Objective Last 24 Hour Vital Signs Date Time Temp Pulse Resp B/P (MAP) Pulse Ox O2 Delivery O2 Flow Rate FiO2 08/03/17 17:48 189/111 08/03/17 17:47 73 189/111 08/03/17 17:00 83 08/03/17 16:55 76 08/03/17 16:50 71 08/03/17 16:00 98.1 70 19 166/105 100 Room Air 98.1 08/03/17 16:00 71 08/03/17 12:00 97.8 69 20 168/107 98 Room Air 97.8 08/03/17 12:00 65 08/03/17 11:32 166/107 08/03/17 10:30 180/109 08/03/17 10:28 97.7 78 20 180/109 98 Room Air 97.7 08/03/17 09:10 100 08/03/17 09:05 99 08/03/17 09:00 98 08/03/17 08:52 72 188/116 08/03/17 08:52 72 188/116 08/03/17 08:07 188/116 08/03/17 08:00 97.7 72 20 184/108 98 Room Air 97.7 08/03/17 08:00 75 08/03/17 04:00 98.0 75 20 189/122 100 Room Air 98.0 08/03/17 04:00 68 08/03/17 03:01 189/122 08/03/17 03:00 189/115 08/03/17 00:00 78 08/03/17 00:00 98.4 74 20 192/126 99 Room Air 98.4 08/02/17 21:11 79 182/113 08/02/17 20:00 98.2 79 20 182/113 98 98.2 08/02/17 20:00 82 Intake and Output 08/02/17 08/03/17 19:00 07:00 Intake Total 1415 ml 75 ml Output Total 900 ml 800 ml Balance 515 ml -725 ml Intake Oral 260 ml IV Total 1155 ml 75 ml Output Urine Total 900 ml 800 ml Laboratory Tests 08/02/17 20:00: Urine Total Volume 24 Hours [Pending], Urine Creatinine 24 Hour [Pending], Urine Total Protein Timed [Pending], Urine Protein/Creatinine Ratio [Pending], Urine Albumin (%) [Pending], Urine Pcmjf-4-Whgemsjxm (%) [Pending], Urine Alpha- 2-Globulins (%) [Pending], Urine Beta-Globulin (%) [Pending], Urine Gamma Globulin (%) [Pending], Urine Protein Electrophoresis Intrp [Pending], Urine Immunofixation [Pending] 08/03/17 07:15: White Blood Count 15.3H, Red Blood Count 2.95L, Hemoglobin 8.4L, Hematocrit 25.7L, Mean Corpuscular Volume 87, Mean Corpuscular Hemoglobin 28.4, Mean Corpuscular Hemoglobin Concent 32.6, Red Cell Distribution Width 20.5H, Platelet Count 189, Mean Platelet Volume 7.3, Neutrophils (%) (Auto) 55.9, Lymphocytes (%) (Auto) 27.7, Monocytes (%) (Auto) 14.8H, Eosinophils (%) (Auto) 0.5, Basophils (%) (Auto) 1.2, Sodium Level 129L, Potassium Level 3.2L, Chloride Level 96L, Carbon Dioxide Level 30, Anion Gap 3L, Blood Urea Nitrogen 26H, Creatinine 1.9H, Estimat Glomerular Filtration Rate , Glucose Level 124H, Calcium Level 7.9L, Total Bilirubin 0.5, Aspartate Amino Transf (AST/SGOT) 93H, Alanine Aminotransferase (ALT/SGPT) 73, Alkaline Phosphatase 217H, Total Protein 14.6H, Albumin 2.3L, Globulin 12.3, Immunoglobulin G [Pending], Immunoglobulin A [Pending], Immunoglobulin M [Pending], Immunofixation Screen [ Pending], HIV (1&2) Antibody Rapid Negative Height (Feet): 6 Height (Inches): 6.00 Weight (Pounds): 174 Objective WDWN NCAT supple CTA RRR soft ND NT no edema non focal KHORRAMI,PAYMAN Aug 03, 2017 17:59
--- NOTE | 2017-08-03 21:00 | Progress Note ---
DATE: 08/03/2017 CARDIOLOGY PROGRESS NOTE SUBJECTIVE: The patient has no specific complaints. Weakness is somewhat better. He is tolerating a diet. No nausea or vomiting. No abdominal pain. No headache. Blood pressure was significantly elevated and we have been continuing to increase his antihypertensive regimen. OBJECTIVE: VITAL SIGNS: Blood pressure 168/107, pulse 69, respirations 20, and afebrile. Monitored rhythm sinus with sinus arrhythmia. NECK: Supple. LUNGS: Clear. CARDIAC: Regular rhythm and rate. Normal S1, S2 with a fourth heart sound. ABDOMEN: Soft and nontender with no focal tenderness. EXTREMITIES: No edema. LABORATORY DATA: White count 15 and hemoglobin 8.4 post transfusion yesterday. Sodium 129, potassium 3.2, bicarb 30, BUN 26, and creatinine 1.9. Albumin 2.3 with total protein of 14. IMPRESSION: 1. Malignant hypertension. 2. Hyponatremia. 3. Hypokalemia. 4. Anemia. 5. Possible gastrointestinal bleeding. 6. Moderate hypoalbuminemia. 7. Syncope due to hypovolemia and anemia. 8. Paroxysmal atrial fibrillation. PLAN: 1. Continue titration of antihypertensives. 2. Cardiac monitoring. 3. Transfuse for hemoglobin less than 8 g. 4. Replace electrolytes as needed and adjustment of IV fluids. 5. 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 6. No plan for anticoagulation/antiplt rx due to significant bleeding risk. Poli Schroeder M.D. DR: FLORIAN JOB#: [id number] CC: DEEP
[2017-08-04] VITALS (7 sets, daily range): BP systolic 151–187; BP diastolic 104–116
[2017-08-04] MEDS: HydrALAZINE 50mg tab ORAL SCH ×4 (00:26→18:32)
[2017-08-04 08:26] LABS: BASOPHILS % (AUTO) 1.5 % (0.0-2.0); EOSINOPHILS % (AUTO) 0.4 % (0.0-3.0); HEMATOCRIT 25.8 % (42.0-52.0); HEMOGLOBIN 8.7 G/DL (14.2-18.0); MEAN CORPUSCULAR VOLUME 87 FL (80-99); MONOCYTES % (AUTO) 13.6 % (1.0-10.0); NEUTROPHILS % (AUTO) 58.6 % (45.0-75.0); PLATELET COUNT 184 K/UL (150-450); RED BLOOD COUNT 2.97 M/UL (4.70-6.10); RED CELL DISTRIBUTION WIDTH 20.6 % (11.6-14.8); WHITE BLOOD COUNT 15.7 K/UL (4.8-10.8)
[2017-08-04] MEDS: Analgesic Balm 15gm TOPIC SCH ×2 (08:26→18:32)
[2017-08-04] MEDS: Metoprolol Tartrate 50mg tab ORAL SCH ×2 (08:26→22:17)
[2017-08-04] MEDS: Pantoprazole Inj IVP SCH ×2 (08:26→22:17)
[2017-08-04 08:54] LABS: ANION GAP 7 mmol/L (5-15); BLOOD UREA NITROGEN 27 mg/dL (7-18); CALCIUM 8.4 MG/DL (8.5-10.1); CARBON DIOXIDE 27 MMOL/L (21-32); CHLORIDE 93 MMOL/L (98-107); POTASSIUM 3.8 MMOL/L (3.5-5.1); SODIUM 126 MMOL/L (136-145)
--- NOTE | 2017-08-04 10:33 | Diagnostic Imaging Report ---
Indication: Back pain Technique: Lumbar spine 3 views Comparison: None Findings: There is no gross fracture. Lumbar alignment is within normal limits. Degenerative endplate osteophytes are seen with moderate L1/L2 and L2/L3 and severe L3/L4, L4/L5 and L5/S1 disc space narrowing. Degenerative facet arthropathy is present. Degenerative changes of the partially visualized hips are noted. Impression: No gross fracture or lumbar malalignment. Prominent degenerative lumbar spondylosis.
[2017-08-04] MEDS ORDERED: NS 275ml ONE (10:44)
[2017-08-04] MEDS ORDERED: Tubing IV Blood Pump IV ONE (10:44)
--- NOTE | 2017-08-04 12:06 | Nephrology Progress Note ---
Assessment/Plan Problem List: (1) Low back pain (2) Hypergammaglobulinemia (3) CKD (chronic kidney disease) stage 3, GFR 30-59 ml/min (4) Syncope (5) Elevated troponin (6) Anemia (7) Proteinuria (8) Hypopotassemia (9) Hyponatremia Plan myeloma studies, titrate bp meds,hydrate--change to po hydration, kcl, cardiac med titration, free water restrict, egd Subjective Constitutional: Reports: weakness HEENT: Reports: no symptoms Genitourinary: Reports: no symptoms Neurologic/Psychiatric: Reports: weakness Objective Objective Last 24 Hour Vital Signs Date Time Temp Pulse Resp B/P (MAP) Pulse Ox O2 Delivery O2 Flow Rate FiO2 08/04/17 09:38 97.7 74 20 151/104 97 Room Air 97.7 08/04/17 08:26 76 182/114 08/04/17 08:26 76 182/114 08/04/17 08:00 97.3 76 20 182/114 97 Room Air 97.3 08/04/17 06:12 186/101 08/04/17 04:00 79 08/04/17 04:00 98.2 68 20 185/109 93 Room Air 98.2 08/04/17 01:00 69 76 89 08/04/17 00:26 187/116 08/04/17 00:00 80 08/04/17 00:00 98.1 68 20 187/116 93 Room Air 98.1 08/03/17 21:03 78 155/97 08/03/17 20:00 98.1 78 19 155/97 100 Room Air 98.1 08/03/17 20:00 79 08/03/17 17:48 189/111 08/03/17 17:47 73 189/111 08/03/17 17:00 83 08/03/17 16:55 76 08/03/17 16:50 71 08/03/17 16:00 98.1 70 19 166/105 100 Room Air 98.1 08/03/17 16:00 71 Intake and Output 08/03/17 08/04/17 19:00 07:00 Intake Total 524 ml Output Total 1200 ml Balance -676 ml IV Total 524 ml Output Urine Total 1200 ml # Voids 3 2 # Bowel Movements 2 1 Laboratory Tests 3/25/18 07:50: White Blood Count 15.7H, Red Blood Count 2.97L, Hemoglobin 8.7L, Hematocrit 25.8L, Mean Corpuscular Volume 87, Mean Corpuscular Hemoglobin 29.3, Mean Corpuscular Hemoglobin Concent 33.7, Red Cell Distribution Width 20.6H, Platelet Count 184, Mean Platelet Volume 7.6, Neutrophils (%) (Auto) 58.6, Lymphocytes (%) (Auto) 26.0, Monocytes (%) (Auto) 13.6H, Eosinophils (%) (Auto) 0.4, Basophils (%) (Auto) 1.5, Sodium Level 126L, Potassium Level 3.8, Chloride Level 93L, Carbon Dioxide Level 27, Anion Gap 7, Blood Urea Nitrogen 27H, Creatinine 2.0H, Estimat Glomerular Filtration Rate , Glucose Level 125H, Calcium Level 8.4L, Hepatitis A IgM Antibody [Pending], Hepatitis B Surface Antigen [Pending], Hepatitis B Core IgM Antibody [Pending], Hepatitis C Antibody [Pending] Height (Feet): 6 Height (Inches): 6.00 Weight (Pounds): 174 General Appearance: thin EENT: normal ENT inspection Neck: normal alignment Cardiovascular: normal rate, regular rhythm Respiratory/Chest: lungs clear Abdomen: non tender, soft 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
--- NOTE | 2017-08-04 16:17 | General Progress Note ---
Assessment/Plan Assessment/Plan Assessment - GI Bleed - syncope - Azotemia - mildly elevated troponin - abnormal LFT - hyponatremia Recommendation - po as tolerated - monitor CBC - transfuse PRN - PPI - cardiac clearance - EGD Saturday - Outpatient colonoscopy - abd u/s after EGD - check hepatitis serologies - pending - free water restrict Subjective Allergies: Coded Allergies: No Known Allergies (Unverified , 08/01/17) Subjective Above noted no further GI bleeding tolerating PO d/w cardiology and nephrology Na lower today LFT still elevated Objective Last 24 Hour Vital Signs Date Time Temp Pulse Resp B/P (MAP) Pulse Ox O2 Delivery O2 Flow Rate FiO2 08/04/17 15:39 171/110 08/04/17 12:42 170/113 08/04/17 12:00 78 08/04/17 12:00 98.1 73 20 170/113 100 Room Air 98.1 08/04/17 09:38 97.7 74 20 151/104 97 Room Air 97.7 08/04/17 09:10 79 08/04/17 09:05 75 08/04/17 09:00 73 08/04/17 08:26 76 182/114 08/04/17 08:26 76 182/114 08/04/17 08:00 97.3 76 20 182/114 97 Room Air 97.3 08/04/17 08:00 78 08/04/17 06:12 186/101 08/04/17 04:00 79 08/04/17 04:00 98.2 68 20 185/109 93 Room Air 98.2 08/04/17 01:00 69 76 89 08/04/17 00:26 187/116 08/04/17 00:00 80 08/04/17 00:00 98.1 68 20 187/116 93 Room Air 98.1 08/03/17 21:03 78 155/97 08/03/17 20:00 98.1 78 19 155/97 100 Room Air 98.1 08/03/17 20:00 79 08/03/17 17:48 189/111 08/03/17 17:47 73 189/111 08/03/17 17:00 83 08/03/17 16:55 76 08/03/17 16:50 71 Intake and Output 08/03/17 08/04/17 19:00 07:00 Intake Total 524 ml Output Total 1200 ml Balance -676 ml IV Total 524 ml Output Urine Total 1200 ml # Voids 3 2 # Bowel Movements 2 1 Laboratory Tests 08/04/17 07:50: White Blood Count 15.7H, Red Blood Count 2.97L, Hemoglobin 8.7L, Hematocrit 25.8L, Mean Corpuscular Volume 87, Mean Corpuscular Hemoglobin 29.3, Mean Corpuscular Hemoglobin Concent 33.7, Red Cell Distribution Width 20.6H, Platelet Count 184, Mean Platelet Volume 7.6, Neutrophils (%) (Auto) 58.6, Lymphocytes (%) (Auto) 26.0, Monocytes (%) (Auto) 13.6H, Eosinophils (%) (Auto) 0.4, Basophils (%) (Auto) 1.5, Sodium Level 126L, Potassium Level 3.8, Chloride Level 93L, Carbon Dioxide Level 27, Anion Gap 7, Blood Urea Nitrogen 27H, Creatinine 2.0H, Estimat Glomerular Filtration Rate , Glucose Level 125H, Calcium Level 8.4L, Hepatitis A IgM Antibody [Pending], Hepatitis B Surface Antigen [Pending], Hepatitis B Core IgM Antibody [Pending], Hepatitis C Antibody [Pending] Height (Feet): 6 Height (Inches): 6.00 Weight (Pounds): 174 Objective WDWN NCAT supple CTA RRR soft ND NT no edema non focal TAYLA OLMEDO Aug 04, 2017 16:17
[2017-08-05] VITALS (11 sets, daily range): BP systolic 118–173; BP diastolic 70–108
--- NOTE | 2017-08-05 00:45 | Progress Note ---
DATE: 08/04/2017 CARDIOLOGY PROGRESS NOTE SUBJECTIVE: The patient without new complaints. He continues to have significant blood pressure elevations. Myeloma studies are pending. IV fluids have been discontinued. OBJECTIVE: VITAL SIGNS: Blood pressure 151/104, pulse 74, respirations 20, and afebrile. LUNGS: Clear. CARDIAC: Regular rhythm and rate. Normal S1 and S2 with a fourth heart sound. ABDOMEN: Soft. EXTREMITIES: Trace edema. LABORATORY AND DIAGNOSTIC DATA: 1. Malignant hypertension. 2. Syncope secondary to anemia and hypovolemia. 3. Acute myocardial ischemia. 4. Corrected electrolyte abnormalities. 5. Possible gastrointestinal bleeding. 6. Hypoalbuminemia. 7. Parox atrial fibrillation. PLAN: 1. Oral hydration. 2. Up titrate antihypertensives. 3. Await myeloma studies. 4. Anticipate panendoscopy. 5. Hold antiplt and anticoag rx. Poli Schroeder M.D. DR: Renee JOB#: [id number] CC: DEEP
[2017-08-05 07:59] LABS: BASOPHILS % (AUTO) 1.5 % (0.0-2.0); EOSINOPHILS % (AUTO) 0.7 % (0.0-3.0); HEMATOCRIT 24.7 % (42.0-52.0); HEMOGLOBIN 8.2 G/DL (14.2-18.0); LYMPHOCYTES % (AUTO) 25.7 % (20.0-45.0); MEAN CORPUSCULAR VOLUME 87 FL (80-99); MONOCYTES % (AUTO) 15.9 % (1.0-10.0); NEUTROPHILS % (AUTO) 56.3 % (45.0-75.0); PLATELET COUNT 191 K/UL (150-450); RED BLOOD COUNT 2.84 M/UL (4.70-6.10); RED CELL DISTRIBUTION WIDTH 20.7 % (11.6-14.8); WHITE BLOOD COUNT 14.6 K/UL (4.8-10.8)
--- NOTE | 2017-08-05 08:01 | Anethesia Preoperative Eval ---
Anesthesia Pre-op PMH/ROS General Date of Evaluation: Aug 05, 2017 Time of Evaluation: 07:58 Anesthesiologist: kayleen ASA Score: ASA 3 Mallampati Score Class I : Soft palate, uvula, fauces, pillars visible Class II: Soft palate, uvula, fauces visible Class III: Soft palate, base of uvula visible Class IV: Only hard plate visible Mallampati Classification: Class II Surgeon: flex Diagnosis: anemia Surgical Procedure: egd Anesthesia History: none Social History: current smoker Family History: no anesthesia problems Allergies: Coded Allergies: No Known Allergies (Unverified , 08/01/17) Medications: see eMAR Past Medical History Cardiovascular: Reports: HTN, other - syncope Gastrointestinal/Genitourinary: Reports: other - chronic kidney disease Musculoskeletal/Integumentary: Reports: other - lbp Anesthesia Pre-op Phys. Exam Physician Exam Last Vital Signs Date Time Temp Pulse Resp B/P (MAP) Pulse Ox O2 Delivery O2 Flow Rate FiO2 08/05/17 04:00 97.9 73 20 164/106 100 Room Air 97.9 Constitutional: NAD Neurologic: CN 2-12 intact Cardiovascular: RRR Respiratory: CTA Gastrointestinal: S/NT/ND Airway Exam Mallampati Score: Class II MO: full Neck: supple TMD: 3fb ROM: full Teeth: missing Dentures: upper, lower Anesthesia Pre-op A/P Labs Hematology Test 08/05/17 07:20 White Blood Count Pending Red Blood Count Pending Hemoglobin Pending Hematocrit Pending Mean Corpuscular Volume Pending Mean Corpuscular Hemoglobin Pending Mean Corpuscular Hemoglobin Concent Pending Red Cell Distribution Width Pending Platelet Count Pending Mean Platelet Volume Pending Neutrophils (%) (Auto) Pending Lymphocytes (%) (Auto) Pending Monocytes (%) (Auto) Pending Eosinophils (%) (Auto) Pending Basophils (%) (Auto) Pending Chemistry Test 08/05/17 07:20 Sodium Level Pending Potassium Level Pending Chloride Level Pending Carbon Dioxide Level Pending Blood Urea Nitrogen Pending Creatinine Pending Estimat Glomerular Filtration Rate Pending Glucose Level Pending Calcium Level Pending Troponin I Pending Cortisol AM Sample Pending Risk Assessment & Plan Assessment: asa3 Plan: mac Status Change Before Surgery: No Pre-Antibiotics Drug: AUSTIN Hill Aug 05, 2017 08:01
[2017-08-05 08:13] LABS: ANION GAP 3 mmol/L (5-15); BLOOD UREA NITROGEN 29 mg/dL (7-18); CALCIUM 8.3 MG/DL (8.5-10.1); CARBON DIOXIDE 30 MMOL/L (21-32); CHLORIDE 96 MMOL/L (98-107); CREATININE 1.9 MG/DL (0.55-1.30); POTASSIUM 4.1 MMOL/L (3.5-5.1); SODIUM 129 MMOL/L (136-145)
[2017-08-05] MEDS: Analgesic Balm 15gm TOPIC SCH ×2 (08:14→17:19)
[2017-08-05] MEDS: Pantoprazole Inj IVP SCH (08:14)
[2017-08-05] MEDS ORDERED: fentaNYL 100 mcg/2 mL IV PRN (08:15)
[2017-08-05] MEDS ORDERED: Atropine Inj 1mg/10ml Syr IV PRN (08:15)
[2017-08-05] MEDS ORDERED: DiphenhydrAMINE 50mg/ml Inj IVP PRN (08:15)
[2017-08-05] MEDS ORDERED: Midazolam 2mg/2ml Inj IVP PRN (08:15)
[2017-08-05] MEDS: HydrALAZINE 50mg tab ORAL SCH ×3 (08:16→17:19)
[2017-08-05] MEDS: Metoprolol Tartrate 50mg tab ORAL SCH (08:17)
--- NOTE | 2017-08-05 08:48 | Cardiology Report ---
APPROVED REPORT EXAM: Two-dimensional and M-mode echocardiogram with Doppler and color Doppler. INDICATION Syncope M-Mode DIMENSIONS IVSd1.7 (0.7-1.1cm)Left Atrium (MM)3.1 (1.6-4.0cm) LVDd5.6 (3.5-5.6cm)Aortic Root3.6 (2.0-3.7cm) PWd1.5 (0.7-1.1cm)Aortic Cusp Exc.2.2 (1.5-2.0cm) IVSs2.4 cm LVDs3.9 (2.5-4.0cm) PWs1.7 cm Mild left ventricular hpokinesis . Mild Left ventricular enlargements . Left ventricular ejection fraction estimated to be 50 %. Mild left ventricular hypertrophy by 2-D . No evidence of pericardial effusion Mild bi-atrial enlargements . Right ventricular chamber sizes are within normal limits . Focal aortic valve sclerosis with adequate cusp excursion. Moderately Thickened mitral valve leaflets with normal excursion. Moderatly Mitral annulus and aortic root calcification. Normal Pulmonic valve structure . Normal tricuspid valve structure. IVC at normal size with physiologic collapse. A color flow and spectral Doppler study was performed and revealed: Trace aortic regurgitation. Moderate mitral regurgitation. Mitral diastolic velocities suggest reduced left ventricular relaxation c/w mild LV diastolic dysfunction (Grade I ). Moderate tricuspid regurgitation. Tricuspid systolic velocities suggests peak right ventricular systolic pressure of 55mmHg, consistent with moderate pulmonary hypertension. No Pulmonic regurgitation present.
[2017-08-05] MEDS ORDERED: Propofol 200mg/20ml IV ONE (09:00)
[2017-08-05] MEDS ORDERED: Lidocaine 1% MPF 10mg/ml 5ml ONE (09:00)
[2017-08-05] MEDS ORDERED: NS 500ML IV ONE (09:30)
--- NOTE | 2017-08-05 09:36 | Pre-Procedure Note/Attestation ---
Pre-Procedure Note/Attestation Complete Prior to Procedure Planned Procedure: not applicable Procedure Narrative: egd Indications for Procedure Pre-Operative Diagnosis: gib Attestation I attest that I discussed the nature of the procedure; its benefits; risks and complications; and alternatives (and the risks and benefits of such alternatives ), prior to the procedure, with the patient (or the patient's legal enrollment eligibility representative). I attest that, if there was a reasonable possibility of needing a blood transfusion, the patient (or the patient's legal enrollment eligibility representative) was given the [facility] standardized written summary, pursuant to the [place] Blood Safety Act ([place] Health and Safety Code # 1645, as amended). I attest that I re-evaluated the patient just prior to the surgery and that there has been no change in the patient's H&P, except as documented below: TAYLA OLMEDO Aug 05, 2017 09:36
--- NOTE | 2017-08-05 10:13 | Immediate Post-Op Evaluation ---
Immediate Post-Op Evalulation Immediate Post-Op Evalulation Procedure: egd Date of Evaluation: Aug 05, 2017 Time of Evaluation: 10:04 IV Fluids: 100ml 0.9ns Blood Products: none Estimated Blood Loss: negligible Blood Pressure Systolic: 119 Blood Pressure Diastolic: 76 Pulse Rate: 50 Respiratory Rate: 18 O2 Sat by Pulse Oximetry: 99 Temperature (Fahrenheit): 98.3 Pain Score (1-10): 0 Nausea: No Vomiting: No Complications none Patient Status: awake, reacts, patent Hydration Status: adequate Drug: AUSTIN Hill Aug 05, 2017 10:13
--- NOTE | 2017-08-05 10:16 | 48 Hour Post Anesthesia Eval ---
Post Anesthesia Evaluation Procedure: egd Date of Evaluation: Aug 05, 2017 Time of Evaluation: 10:06 Blood Pressure Systolic: 124 0: 72 Pulse Rate: 51 Respiratory Rate: 18 Temperature (Fahrenheit): 98.3 O2 Sat by Pulse Oximetry: 99 Airway: patent Nausea: No Vomiting: No Pain Intensity: 0 Hydration Status: adequate Cardiopulmonary Status: stable Mental Status/LOC: patient returned to baseline Post-Anesthesia Complications: none Follow-up care needed: N/A AUSTIN PEREZ Aug 05, 2017 10:16
--- NOTE | 2017-08-05 10:31 | General Progress Note ---
Assessment/Plan Assessment/Plan Assessment - GI Bleed - syncope - Azotemia - mildly elevated troponin - abnormal LFT - hyponatremia Recommendation - monitor CBC - transfuse PRN - PPI - EGD today --> showed erosive gastritis and duodenitis - Outpatient colonoscopy - abd u/s today - check hepatitis serologies - negative - free water restrict Subjective Allergies: Coded Allergies: No Known Allergies (Unverified , 08/01/17) Subjective Above noted no further GI bleeding NPO for EGD LFT still elevated Objective Last 24 Hour Vital Signs Date Time Temp Pulse Resp B/P (MAP) Pulse Ox O2 Delivery O2 Flow Rate FiO2 08/05/17 10:16 208.9 51 18 99 08/05/17 10:13 208.9 50 18 99 08/05/17 10:02 51 16 124/72 100 Nasal Cannula 3.0 08/05/17 09:57 51 16 118/70 100 Nasal Cannula 3.0 08/05/17 09:52 98.3 50 19 119/76 100 Nasal Cannula 3.0 98.3 08/05/17 08:17 67 173/108 08/05/17 08:17 67 173/108 08/05/17 08:16 173/108 08/05/17 04:00 97.9 73 20 164/106 100 Room Air 97.9 08/05/17 04:00 64 08/05/17 00:00 97.0 66 20 157/98 99 Room Air 97.0 08/05/17 00:00 61 08/04/17 22:17 72 173/107 08/04/17 21:00 72 70 75 08/04/17 20:00 97.7 72 21 173/107 100 Room Air 97.7 08/04/17 20:00 76 08/04/17 18:32 178/103 08/04/17 18:32 68 178/103 08/04/17 16:00 70 08/04/17 16:00 97.9 96 20 171/109 100 Room Air 97.9 08/04/17 15:39 171/110 08/04/17 12:42 170/113 08/04/17 12:00 78 08/04/17 12:00 98.1 73 20 170/113 100 Room Air 98.1 Intake and Output 08/04/17 08/05/17 19:00 07:00 Intake Total 540 ml Balance 540 ml Intake Oral 540 ml # Voids 1 2 # Bowel Movements 1 1 Laboratory Tests 08/05/17 07:20: White Blood Count 14.6H, Red Blood Count 2.84L, Hemoglobin 8.2L, Hematocrit 24.7L, Mean Corpuscular Volume 87, Mean Corpuscular Hemoglobin 28.8, Mean Corpuscular Hemoglobin Concent 33.0, Red Cell Distribution Width 20.7H, Platelet Count 191, Mean Platelet Volume 8.2, Neutrophils (%) (Auto) 56.3, Lymphocytes (%) (Auto) 25.7, Monocytes (%) (Auto) 15.9H, Eosinophils (%) (Auto) 0.7, Basophils (%) (Auto) 1.5, Sodium Level 129L, Potassium Level 4.1, Chloride Level 96L, Carbon Dioxide Level 30, Anion Gap 3L, Blood Urea Nitrogen 29H, Creatinine 1.9H, Estimat Glomerular Filtration Rate , Glucose Level 112H, Calcium Level 8.3L, Troponin I 0.073H, Cortisol AM Sample [Pending] Height (Feet): 6 Height (Inches): 6.00 Weight (Pounds): 174 Objective WDWN NCAT supple CTA RRR soft ND NT no edema non focal TAYLA OLMEDO Aug 05, 2017 10:31
--- NOTE | 2017-08-05 10:53 | Brief Operative Note ---
Immediate Post Operative Note Operative Note Chief Complaint: gib Pre-op Diagnosis: gib Procedure: egdbx Post-op Diagnosis: alirio Post-op Diagnosis: same as pre-op plus Surgeon: flex Anesthesiologist: maximiliano cornejo Specimen: yes Complications: none Condition: stable Fluids: recorded Estimated Blood Loss: none Drains: none Implant(s) used?: No TAYLA OLMEDO Aug 05, 2017 10:53
--- NOTE | 2017-08-05 10:53 | Endoscopy Procedure Note ---
Endoscopy Procedure Note General Indication for Procedure: gib Procedures Performed: EGD Operative Findings/Diagnosis: gastritis Specimen: yes Pt Tolerated Procedure Well: Yes Estimated Blood Loss: none Anesthesia Anesthesiologist: maximiliano cornejo Anesthesia: MAC Medications Medication Given: see anesthesia record Inserted Devices Implant(s) used?: No GI Core Measures 50 yrs or older w/o bx or poly: Not Applicable 10yrs. F/U not recommended: Not Applicable If not recommended, why?: TAYLA OLMEDO Aug 05, 2017 10:53
--- NOTE | 2017-08-05 14:03 | Diagnostic Imaging Report ---
Indication: Abnormal liver function tests and renal function tests Technique: Laureano-scale and duplex images of the upper abdomen were obtained Comparison: none Findings: Gallbladder demonstrates sludge and small stones. There are calcifications within the gallbladder wall. No pericholecystic fluid. Common bile duct measures 10 mm in diameter. No intrahepatic biliary ductal dilatation. Liver demonstrates normal parenchymal echogenicity. Throughout the liver, there are multiple foci of abnormal echogenicity. These are mostly hyperechoic. These do not demonstrate distal acoustic enhancement. Some are somewhat heterogeneous and some with cystic component. These measure up to 4 cm in diameter. There are also some discrete cysts. Portal vein and hepatic veins are patent. Pancreas is unremarkable. Spleen is unremarkable. Left kidney measures 11.8 cm in length. Right kidney measures 9.5 cm length. Both kidneys demonstrate increased echogenicity . There is slight fullness to the left renal collecting system. No right hydronephrosis . The right kidney demonstrates a 2.3 cm cyst. No focal abnormality seen in the left kidney. The bladder demonstrates a prevoid volume of 298 mL. Postvoid bladder volume is 132 mL. The prostate is enlarged, calculated volume 111 mL. Non-aneurysmal abdominal aorta . Impression: Multiple solid liver lesions. These are worrisome for multiple metastatic deposits. There are some hepatic cysts as well Gallbladder sludge and stones Gallbladder wall calcifications, significance uncertain Extrahepatic biliary ductal dilatation. This could indicate downstream obstruction. Consider CT or MRCP for better characterization Bilateral increased renal echogenicity, consistent with medical renal disease Nonspecific slight fullness of the left renal collecting system without sd hydronephrosis Postvoid bladder volume 132 mL Markedly enlarged prostate
[2017-08-05] MEDS ORDERED: APRESOLINE50 MG ORAL (15:58)
[2017-08-05] MEDS ORDERED: CLONIDINE HCL0.3 MG PO (15:58)
[2017-08-05] MEDS ORDERED: METOPROLOL TART50 MG ORAL (15:58)
[2017-08-05] MEDS ORDERED: OMEPRAZOLE40 M1 ORAL (15:58)
--- NOTE | 2017-08-05 19:28 | Cardiology Report ---
APPROVED REPORT EKG Measurement Heart [id number] LA [id number] Normal sinus rhythm Rightward axis T wave abnormality, consider anterolateral ischemia Abnormal ECG
--- NOTE | 2017-08-05 19:32 | Cardiology Report ---
APPROVED REPORT EKG Measurement Heart [id number] MI [id number] Sinus rhythm with premature atrial complexes Voltage criteria for left ventricular hypertrophy Nonspecific T wave abnormality Abnormal ECG
--- NOTE | 2017-08-06 04:01 | Procedure Note ---
DATE OF PROCEDURE: 08/05/2017 GASTROENTEROLOGY PROCEDURE REPORT PROCEDURE: Upper gastrointestinal endoscopy with biopsy. SURGEON: Zahra Melara M.D. ANESTHESIA: Please see the separate anesthesiologist notes for details. PRE-ENDOSCOPIC DIAGNOSIS: Upper gastrointestinal bleeding. POST-ENDOSCOPIC DIAGNOSES: 1. Diffuse erosive gastritis, status post biopsy. 2. Erosive duodenitis, status post biopsy. PROCEDURE: The procedure, its risks, indications, alternatives, and possible complications were explained and informed consent was obtained. The endoscope was introduced through the oropharynx and advanced to the duodenum. Findings were as listed above. Biopsies were obtained. There was no active bleeding. The endoscope was removed and the patient was sent to recovery in good condition. COMPLICATIONS: None. RECOMMENDATIONS: 1. Resume oral diet. 2. Check and treat Helicobacter pylori if positive. 3. Proton pump inhibitor. 4. Outpatient colonoscopy. Zahra Melara M.D. DR: Liana JOB#: [id number] CC:
--- NOTE | 2017-08-06 06:01 | Progress Note ---
DATE: 08/05/2017 CARDIOLOGY PROGRESS NOTE SUBJECTIVE: The patient underwent upper endoscopy revealing esophagitis and gastritis. Blood pressure parameters are slowly improving now 142/90 with heart rate 66 in sinus rhythm. The patient has no chest pain. No shortness of breath. Myeloma workup is on going. OBJECTIVE: LUNGS: Clear. CARDIAC: Regular. Normal S1 and S2 with a fourth heart sound. ABDOMEN: Soft. EXTREMITIES: No edema. IMPRESSION: 1. Malignant hypertension, improving. 2. Acute myocardial ischemia, resolved. 3. Anemia status post transfusion. 4. Gastritis and esophagitis. 5. Possible myeloma. 6. Chronic diastolic congestive heart failure. 7. Paroxysmal atrial fibrillation. PLAN: 1. Stable for outpatient followup. 2. Continue current antihypertensives. 3. Complete anemia and myeloma workup as outpatient. 4. Colonoscopy as outpatient. 5. No plan for anticoagulation due to bleeding risk. 6. Discharge regimen discussed with the patient in detail. Poli Schroeder M.D. DR: FLORIAN JOB#: [id number] CC: DEEP
--- NOTE | 2017-08-06 17:45 | Discharge Summary ---
DATE OF ADMISSION: 08/01/2017 DATE OF DISCHARGE: 08/05/2017 NOTE: Poor Audio/Multiple Blanks PERTINENT HISTORY: The patient is a 71-year-old man, who presents with syncope. He had a hot sensation in his face and lost consciousness and he was brought to the emergency room. He was found to have very high blood pressure as high as 219/124 in the emergency room and severe anemia. PERTINENT PHYSICAL FINDINGS: See the dictation by Dr. Ornoa. HEENT: Unremarkable. LUNGS: Clear. HEART: Regular rhythm. ABDOMEN: Soft. Liver and spleen not enlarged. EXTREMITIES: No edema. COURSE IN THE HOSPITAL: The patient's hemoglobin was 8.1 on admission. BUN 36, creatinine 2.3, and sodium 129. He was evaluated for GI bleeding. His studies were sent for evaluation of myeloma and severely elevated total protein. His renal function did not improve with hydration and remained borderline elevation of troponin. He was seen by Dr. Poli Schroeder in Cardiology consultation. The patient subsequently cleared and underwent endoscopy by Dr. Melara. The findings showed severe erosive gastritis and diverticulitis. The outpatient colonoscopy was recommended. The patient also had abdominal ultrasound, which showed liver lesions. These are worrisome for multiple metastatic deposits. There are some hepatic cysts as well. There is also gallbladder sludge and extrahepatic biliary duct dilation. The patient was informed of the above. The patient was able to tolerate the diet. There was no active bleeding at the time of discharge. On the day of discharge, his vital signs were stable. Lungs clear. Heart, regular rhythm. Abdomen, soft. No organomegaly. Extremities, no edema. He was discharged home in stable condition. The patient was to arrange for follow up with his primary care physician at the [facility]. and his primary care physician . FINAL DIAGNOSES: 1. Syncope secondary to anemia and hypovolemia. 2. Malignant hypertension. 3. Acute myocardial infarction. 4. Gastrointestinal bleeding. 5. . Studies for myeloma pending. 6. Chronic kidney disease, stage 3. 7. Liver lesions metastatic. Further studies . 8. Possible anemia of chronic kidney disease. DISCHARGE DISPOSITION: Home on a low-salt diet. DISCHARGE MEDICATIONS: Per discharge medication list. FOLLOWUP: Followup by his primary care physician. . ADDENDUM: The immunofixation shows IgG monoclonal protein with concern for myeloma. The patient should be followed by his primary care physician. Clyde Livingston M.D. DR: Ian JOB#: [id number] CC:
== END 2017-08-05 18:55 | disposition home or self-care (01) | DRG 377 ==
LOC: EDBD 09:50 → EMR 10:58 → EDBEDREQ 11:48 → 2E 12:30 → EDBEDREQ 12:53 → OBSVTOIN 13:16
PROC: 30253N1 (ICD-10-PCS; principal; 2017-08-02)
DX: K92.2 Gastrointestinal hemorrhage, unspecified (principal); I21.9 Acute myocardial infarction, unspecified; E44.0 Moderate protein-calorie malnutrition; C90.00 Multiple myeloma not having achieved remission; I13.0 Hypertensive heart and chronic kidney disease with heart failure and stage 1 through stage 4 chronic kidney disease, or unspecified chronic kidney disease; I50.32 Chronic diastolic (congestive) heart failure; M62.82 Rhabdomyolysis; E87.1 Hypo-osmolality and hyponatremia; I27.20 Pulmonary hypertension, unspecified; I48.0 Paroxysmal atrial fibrillation; N18.3 Chronic kidney disease, stage 3 (moderate); E86.9 Volume depletion, unspecified; I95.1 Orthostatic hypotension; Z72.0 Tobacco use; Z68.20 Body mass index [BMI] 20.0-20.9, adult; I16.0 Hypertensive urgency; E87.6 Hypokalemia; Z57.5 Occupational exposure to toxic agents in other industries; T60.3X1S Toxic effect of herbicides and fungicides, accidental (unintentional), sequela; L25.3 Unspecified contact dermatitis due to other chemical products; D50.0 Iron deficiency anemia secondary to blood loss (chronic); E86.0 Dehydration; J44.9 Chronic obstructive pulmonary disease, unspecified; K29.70 Gastritis, unspecified, without bleeding; K29.80 Duodenitis without bleeding; D89.2 Hypergammaglobulinemia, unspecified; M54.5 Low back pain; N18.9 Chronic kidney disease, unspecified
CPT/HCPCS: 36415; 71045; 72020; 76700; 80048; 80053; 80061; 81003; 81050; 82533; 82550; 82553; 82570; 82784; 83540; 83550; 84165; 84300; 84443; 84484; 85007; 85025; 86334; 86703; 86705; 86709; 86803; 86850; 86900; 86901; 86920; 87086; 87340; 93005; 93306; 93880; 94003; 94150; 99291; J8499